=== PATIENT | male | born 2000 | race Caucasian/White ===

== ENCOUNTER 2022-05-29 02:20 | Emergency (ER) | payer SELFPAY ==
--- NOTE | ~2022-05-29 | XR_ITS ---
EXAMINATION: XR hand RT min 3V DATE: 05/29/2022 03:10 INDICATION: Right hand pain and swelling. TECHNIQUE: 3 views of right hand were obtained. COMPARISON: None. FINDINGS: Bone alignment is normal. No fracture. Joint spaces are well maintained. There is hand soft tissue swelling. IMPRESSION: 1. No fracture. Reviewed, dictated and finalized at location A. IMPRESSION: 1. No fracture.
[2022-05-29 02:27] VITALS: BP 132/74; PULSE 97; RESP 16; TEMP 37.1; O2SAT 98
[2022-05-29 02:29] VITALS: BP 132/74; PULSE 97; RESP 18; TEMP 37.1; O2SAT 98
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
[2022-05-29] MEDS: AMOXICILLIN/CLAVULANATE K 875-125 MG TAB 1 TABLET PO (02:49)
[2022-05-29] MEDS: ONDANSETRON HCL ODT 4 MG TABLET PO (02:49)
[2022-05-29] MEDS: HYDROcodone/acetaminophen (*CRX) 5-325 MG TABLET 1 TAB PO (02:49)
[2022-05-29] MEDS: TETANUS,DIPHTHERIA,AC PERTUSSIS ADULT (0.5 ML) BOOSTRIX IM (02:50)
--- NOTE | 2022-05-29 03:03 | PC.NURSE ---
Assumed care of pt at this time.
[2022-05-29 04:06] VITALS: BP 125/71; PULSE 89; RESP 20; TEMP 36.7; O2SAT 98
== END 2022-05-29 04:08 | disposition home or self-care (01) ==
PROVIDERS: Emergency Provider General Practice
DX: L03.113 Cellulitis of right upper limb (principal); Z23 Encounter for immunization
CPT/HCPCS: 73130; 90471; 90715; 99283; A9270